=== PATIENT | male | born 1955 | race Caucasian/White ===

== ENCOUNTER 2017-09-20 10:22 | Emergency (ER) | payer OTHER ==
[2017-09-20 11:56] VITALS: BP 123/71
--- NOTE | 2017-09-22 10:10 | ER ---
DATE SEEN: 09/20/2017 TIME SEEN: The patient was seen at 1045 hours. HISTORY OF PRESENT ILLNESS: This is a 62-year-old gentleman presents with his , with history of being tired and coughing for the last 3 days (onset of symptoms on 09/17/2017). He has been mildly short of breath for the last 3 days. He denies dyspnea on exertion. He has a nonproductive cough. He has been afebrile. He has had two-vessel CABG several years ago. He had a stress test done in June, which was negative. 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 He denies palpitations. He is mildly dizzy on occasion. He feels like he is going to have diarrhea, but did not. Feels like he has a slight stomach upset, did not. He has had flu vaccination. He had slight nausea last night. He did have pizza last night, and suggests perhaps that made him worse. He has been without a fever. He has lost 17 pounds in the last 1- 1/2 months. Now, he is currently 256 pounds. He was a smoker, quit 12 years ago. He smoked 1 to 2 packs for 35 years, and has been getting every 6 months' chest x-rays. MEDICATIONS: The patient is taking an FRANK inhibitor. He has been on it for some time for his hypertension. Other medications are 1. Zantac 75 mg daily. 2. Meloxicam 15 mg daily. 3. Lisinopril 7.5 mg daily, latter was increased several months ago. 4. Crestor 20 mg daily. 5. Metoprolol succinate 50 mg daily. 6. Flonase one spray each nostril daily. 7. Lotrisone 15 g p.r.n. 8. Aspirin 81 mg daily. ALLERGIES: None. FAMILY HISTORY: Father of myocardial infarction at age 54. Mother at age 85 of acute leukemia. Brothers alive and well. Two sisters are alive and well. VACCINATION HISTORY: He did have influenza shot. REVIEW OF SYSTEMS: Negative except for noted above. HEENT: Denies headache or neck stiffness. CARDIORESPIRATORY: See cardiorespiratory above. Denies chest pain, palpitation. Paradis dizzy with coughing. He has been actively going up and down the stairs with feet planted without shortness of breath. This morning, he had a temperature of a 100.6 (correction I did say febrile above, but he does have a fever of 100.6). GASTROINTESTINAL: He denies reflux, gastritis. Has peptic disease, constipation, blood in the stool, or black tarry stools. He has not had diarrhea, but he "feels like he has diarrhea." : Negative. MUSCULOSKELETAL: Negative. PHYSICAL EXAMINATION: VITAL SIGNS: Blood pressure 149/79, which we repeated at 123/71; heart rate 98, repeat at 82; respirations 18 and repeat is 20; and temperature is 36.8 degrees centigrade. 116 kg with a BMI of 33.8 kg/m2. GENERAL: This is a pleasant, hard-working man who is here with his . She is very concerned why he is tired. "He is never this tired." HEENT: The patient is not on thyroid medicine. Alert man. No thyromegaly. No tracheal tug. No masses in the neck. No cervical adenopathy. Pharynx, mild uvular edema. Rapid strep was obtained. LUNGS: Clear without rales, rhonchi, or wheezes. HEART: S1 and S2. No irregular rate and rhythm. ABDOMEN: Soft. No guarding. No hepatosplenomegaly. Bowel sounds are normal. No spinous process tenderness. He does have low back surgery in his lumbar region, which is now nontender. Noted that he had difficulty with residual numbness in his foot after he had the surgery. EXTREMITIES: Deep tendon reflexes, absent left knee jerks and ankle jerks. Decreased but present in the right knee and right ankle. Upper extremities, decreased left side and right side deep tendon reflexes, but more notable reflexes on the right compared to the left. DIAGNOSTIC DATA: Chest x-ray: Granulomata was noted. No clear evidence for lymphadenopathy or cephalization. No cardiomegaly. EKG is normal. Troponin is less than 0.017 and D-dimer is negative. LABORATORY FINDINGS: Complete metabolic panel is otherwise normal with mild liver enzyme abnormality; AST 28 (5-25), ALT 43 (12-36), and mild trace elevation in glucose of 138. ASSESSMENT AND PLAN: 1. Cough. 2. Cough secondary to virus. 3. Possible atypical Mycoplasma pneumoniae, but he is not in the usual age range for this. I did not do urine antigen evaluation. 4. Mild liver enzyme elevation, perhaps this has something to do with his weight loss and also is obesity. He should have a followup in 3 to 6 months. 5. Normal white count, normal hemoglobin, and no abnormality of the platelets. 6. No evidence for venous thromboembolism. Legs are negative and D-dimer is negative, not suggesting any lung involvement. 7. No suggestion of myocardial involvement. DIAGNOSES 1. Cough, etiology undetermined, most likely viral. 2. I did not treat for Mycoplasma pneumonia. 3. Doubt cardiovascular etiology. He has had a CABG with 2-vessel approximately 8+ years ago. 4. Obesity with loss of 79 pounds in the last month and a half. He is doing well. Weight is 256 with a BMI of 33.8 kg/m2. Initially, the patient's pressure was elevated on arrival, but has come down to 123/71, and is normotensive. The patient was dismissed with Tessalon Perles 100 mg 1 to 2 tablets three times a day, and also if this does not suppress the cough, he has a backup medication Codeine 30 mg 1 to 2 tablets q.4 to 6 hours p.r.n. severe cough. The patient was advised not to use this if he is planning to work in the next 6 hours, and to avoid it if he is doing other tasks that could involve machinery or driving. Follow up with doctor in a week if not improved or earlier, otherwise as needed. /[id number] NICOLLE/JUANI WINSTON
--- NOTE | 2017-09-22 10:10 | ER ---
DATE SEEN: 09/20/2017 ADDENDUM: Throughout much of this visit, his asked a lot of very appropriate questions, and seemed to have an edge regarding her questions. Perhaps, this is a function of her being concerned, and also her worried about his cardiac status and also concern about her in general. She seemed to bark out questions. I am not sure what her expectation was, and I did not inquire in that regard. As they were leaving, the patient, Mr. York, thanked me for examination. I think all is well, but I am not certain if she had some strong concerns that she did not relate to me; I did not inquire in that regard. /[id number] NICOLLE/JUANI
--- NOTE | 2017-09-22 12:33 | CR ---
INDICATION: Chest tightness and cough. CHEST: PA and lateral views of the chest 09/20/2017 were compared with 2010 and 02/24/2010, revealing the heart to remain normal in size and shape post median sternotomy. Calcification is suggested minimally in the arch of the aorta, which is only minimally tortuous. Bone structures appear to be intact. Findings compatible with COPD are again noted. Overlying buttons are noted. No evidence of an active infiltrate or effusion was seen. IMPRESSION: 1. Stable chest, no acute process. 2. Post medial sternotomy with ASHD and normal appearing heart size. 3. COPD. MTDD
--- NOTE | 2017-09-23 03:57 | ER ---
DATE SEEN: 09/20/2017 EKG performed on 09/20/2017, normal sinus rhythm, heart rate 88. /[id number] NICOLLE/JUANI
== END 2017-09-20 12:19 | disposition home or self-care (01) ==
LOC: FB.ED 10:22
DX: R05 Cough (principal); R94.5 Abnormal results of liver function studies; E66.9 Obesity, unspecified; Z79.899 Other long term (current) drug therapy
CPT/HCPCS: 36415; 71046; 80053; 84443; 84484; 85025; 85379; 87081; 87880-QW; 93005; 99284

== ENCOUNTER 2018-06-10 09:36 | Emergency (ER) | payer OTHER ==
[2018-06-10] MEDS ORDERED: cloNIDine 0.1 MG Tab PO ONE (10:11)
--- NOTE | 2018-06-10 10:16 | EDM.PDOC ---
ED HPI GENERAL MEDICAL PROBLEM - General Chief Complaint: Cardiovascular Problem Stated Complaint: BLOOD PRESSURE Time Seen by Provider: 06/10/18 09:36 Source of Information: Reports: Patient History Limitations: Reports: No Limitations - History of Present Illness INITIAL COMMENTS - FREE TEXT/NARRATIVE: 63 y.o.w.m with H/O HTN, came to the ed because his BP was 186/95 this morning. Pt noticed a nosebleed after taking a shower and checked his BP then, which was elevated. 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 BP 187/100 Pulse 58 RR 18 Pulse ox 100% on RA Temp 35.8 Onset Date: 06/10/18 Onset Time: 06:00 Duration: Hour(s):, Improving Location: Reports: Face Quality: Reports: Other (ant nose bleed) Severity: Mild Improves with: Reports: Rest Worsens with: Reports: Other (htn) Context: Reports: Other (htn) Associated Symptoms: Reports: Other (nose bleed) - Related Data Allergies Allergy/AdvReac Type Severity Reaction Status Date / Time No Known Allergies Allergy Verified 06/10/18 09:39 Home Meds: Home Meds Aspirin 81 mg PO DAILY 06/25/15 [History] Metoprolol Succinate 50 mg PO DAILY 06/25/15 [History] Rosuvastatin [Crestor] 20 mg PO DAILY 06/25/15 [History] Betamethasone/Clotrimazole [Lotrisone] 15 gm TOP BID PRN 06/27/15 [History] Fluticasone Propionate [Flonase] 1 spray NS DAILY PRN 08/08/15 [History] Nystatin/Triamcinolone Crm [Mycolog Crm] 1 applic TOP BID PRN 08/08/15 [History] Lisinopril 7.5 mg DAILY 09/20/17 [History] Ranitidine [Zantac] 75 mg PO DAILY PRN 09/20/17 [History] Past Medical History HEENT History: Reports: None Cardiovascular History: Reports: Bypass, CAD, High Cholesterol, Hypertension, Stents Other Cardiovascular History: 8 vessel CABG Respiratory History: Reports: None Gastrointestinal History: Reports: GERD Genitourinary History: Reports: None Musculoskeletal History: Reports: Back Pain, Chronic Other Musculoskeletal History: has had back surgery in 2012 to remove a potion of a ruptured disc in his back Neurological History: Reports: Neuropathy, Peripheral Endocrine/Metabolic History: Reports: Diabetes, Type II, Obesity/BMI 30+ Other Endocrine/Metabolic History: borderline DM - Infectious Disease History Infectious Disease History: Reports: Chicken Pox, Measles, Mumps - Past Surgical History Head Surgeries/Procedures: Reports: None Cardiovascular Surgical History: Reports: Coronary Artery Bypass, Coronary Artery Stent GI Surgical History: Reports: Colonoscopy, EGD Male Surgical History: Reports: None Neurological Surgical History: Reports: Lumbar Spine Social & Family History - Family History Family Medical History: Noncontributory - Tobacco Use Smoking Status *Q: Former Smoker Used Tobacco, but Quit: Yes Month/Year Tobacco Last Used: 2005 - Caffeine Use Caffeine Use: Reports: Coffee - Recreational Drug Use Recreational Drug Use: No ED ROS GENERAL - Review of Systems Review Of Systems: See Below Constitutional: Reports: No Symptoms HEENT: Reports: Nosebleed (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) Respiratory: Reports: No Symptoms Cardiovascular: Reports: No Symptoms Endocrine: Reports: No Symptoms GI/Abdominal: Reports: No Symptoms : Reports: No Symptoms Musculoskeletal: Reports: No Symptoms Skin: Reports: No Symptoms Neurological: Reports: No Symptoms Psychiatric: Reports: No Symptoms Hematologic/Lymphatic: Reports: No Symptoms Immunologic: Reports: No Symptoms ED EXAM, GENERAL - Physical Exam Exam: See Below Exam Limited By: No Limitations General Appearance: Alert, WD/WN, Mild Distress Eye Exam: Bilateral Eye: Normal Inspection Ears: Normal External Exam Ear Exam: Bilateral Ear: Auricle Normal Nose: Normal Inspection, Normal Mucosa, No Blood Throat/Mouth: Normal Inspection, Normal Lips, Normal Voice, No Airway Compromise Head: Atraumatic, Normocephalic Neck: Normal Inspection, Supple, Non-Tender, Full Range of Motion Respiratory/Chest: No Respiratory Distress, Lungs Clear, Normal Breath Sounds, Chest Non-Tender Cardiovascular: Normal Peripheral Pulses, Regular Rate, Rhythm, No Edema, No Gallop, No JVD, No Murmur, No Rub Peripheral Pulses: 1+: Brachial (R) GI/Abdominal: Normal Bowel Sounds (Male) Exam: Deferred Rectal (Males) Exam: Deferred Back Exam: Normal Inspection Extremities: Normal Inspection Neurological: Alert, Oriented, CN II-XII Intact, Normal Cognition Psychiatric: Normal Affect, Normal Mood Skin Exam: Warm, Dry, Intact, Normal Color, No Rash Lymphatic: No Adenopathy Course - Vital Signs Text/Narrative:: 63 y.o.w.m with H/O HTN, came to the ed because his BP was 186/95 this morning. Pt noticed a nosebleed after taking a shower and checked his BP then, which was elevated. 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 BP 187/100 Pulse 58 RR 18 Pulse ox 100% on RA Temp 35.8 PE: WNWD W M with HTN Labs/Imaging: Not indicated Impression: HTN Tx: Clonidine Reexam: Improved BP was 156/95 Plan: D/C with instructions Last Recorded V/S: Last Vital Signs Temp 35.7 C 06/10/18 09:36 Pulse 49 L 06/10/18 11:36 Resp 18 06/10/18 11:36 BP 140/73 06/10/18 11:36 Pulse Ox 100 06/10/18 11:36 - Orders/Labs/Meds Meds: Medications Discontinued Medications Generic Name Dose Route Start Last Admin Trade Name Barbi PRN Reason Stop Dose Admin Clonidine HCl 0.1 mg 06/10/18 10:11 06/10/18 10:29 Catapres PO 06/10/18 10:12 0.1 mg ONETIME ONE Administration Departure - Departure Time of Disposition: 11:08 Disposition: Home, Self-Care 01 Condition: Good Clinical Impression: Hypertension Instructions: Hypertension, [id number], Clonidine tablets Referrals: Federico Disla MD [Primary Care Provider] - Forms: ED Department Discharge Additional Instructions: Please cont your current medications, check you BP every morning at the same time at rest, please follow up with your regular MD at clinic, come back if your symptoms get worse acutely.
[2018-06-10 11:50] VITALS: BP 140/73
== END 2018-06-10 11:40 | disposition home or self-care (01) ==
LOC: FB.ED 09:36
DX: I10 Essential (primary) hypertension (principal); I25.10 Atherosclerotic heart disease of native coronary artery without angina pectoris; E11.9 Type 2 diabetes mellitus without complications; E66.9 Obesity, unspecified; Z95.1 Presence of aortocoronary bypass graft; Z95.5 Presence of coronary angioplasty implant and graft; Z79.82 Long term (current) use of aspirin; Z79.899 Other long term (current) drug therapy; Z87.891 Personal history of nicotine dependence
CPT/HCPCS: 99283; A9270

== ENCOUNTER 2019-05-25 07:32 | Day surgery (SDC) | payer MEDICARE, OTHER ==
[~2019-05-25 07:32] MED LIST: Lactated Ringers 1,000 ML IV SCH; Sodium Chloride 0.9% 10 ML Syringe FLUSH PRN
[2019-05-25] MEDS ORDERED: Lidocaine 2% 5 ML SDV INJECT ONE (07:33)
[2019-05-25] MEDS ORDERED: Propofol 200 MG/20 ML SDV IV ONE (07:33)
--- NOTE | 2019-05-25 08:49 | PCM.OPNOTE ---
- General Post-Op/Procedure Note Date of Surgery/Procedure: 05/25/19 Operative Procedure(s): egd with bx Findings: gastroduodenitis esophagitis Pre Op Diagnosis: dysphagia Post-Op Diagnosis: gastroduodenitis. esophagitis Anesthesia Technique: CURRY Primary Surgeon: Bennie Thorne Anesthesia Provider: Mitchell William Pathology: stomach duodenum and esophagus Complications: None Condition: Good Free Text/Narrative:: see dictation
[2019-05-25 09:43] VITALS: BP 111/57; PULSE 58
--- NOTE | 2019-05-25 14:35 | OR ---
DATE OF OPERATION: 05/25/2019 SURGEON: Bennie Thorne MD PROCEDURE PERFORMED: Esophagogastroduodenoscopy with cold forceps biopsy. PREOPERATIVE DIAGNOSIS: Dysphagia. POSTOPERATIVE DIAGNOSES: Gastroduodenitis and some esophagitis. INDICATIONS FOR PROCEDURE: This is a 64-year-old white male who has a history of some epigastric discomfort as well as some swallowing issues. He has gotten progressively worse, and he was offered and accepted upper endoscopy. DESCRIPTION OF OPERATION: After an excellent IV sedation was administered, the bite block was inserted. The flexible endoscope was passed without difficulty down the patient's esophagus into the stomach. The stomach was insufflated, scope passed through the pylorus to the second portion of the duodenum and slowly withdrawn. The following findings were noted. In the first portion of the duodenum, duodenitis noted. Biopsies and photos were taken. Stomach, GE junction measured at 40 cm. There was some irritation noted in the area of the antrum. Biopsies and photo were taken. In evaluating the esophagus on one side, there was some GE junction with some areas of inflammation. This was biopsied with cold biopsy forceps and sent for permanent. The remainder of the esophageal exam was unremarkable. The patient tolerated the procedure well and was taken to Recovery. Results will be sent to the patient by letter. /[id number] /MODL
== END 2019-05-25 09:32 | disposition home or self-care (01) ==
LOC: FB.SDS 07:32
PROVIDERS: ATTEND Surgery
DX: K29.50 Unspecified chronic gastritis without bleeding (principal); K31.89 Other diseases of stomach and duodenum; K29.90 Gastroduodenitis, unspecified, without bleeding; K21.0 Gastro-esophageal reflux disease with esophagitis; I11.9 Hypertensive heart disease without heart failure; E11.9 Type 2 diabetes mellitus without complications; E78.49 Other hyperlipidemia; I25.10 Atherosclerotic heart disease of native coronary artery without angina pectoris; E66.9 Obesity, unspecified; Z68.33 Body mass index [BMI] 33.0-33.9, adult; Z87.891 Personal history of nicotine dependence; Z79.82 Long term (current) use of aspirin; Z79.84 Long term (current) use of oral hypoglycemic drugs; Z79.899 Other long term (current) drug therapy; Z95.1 Presence of aortocoronary bypass graft
CPT/HCPCS: 00731; 43239; 82962; J2001; J2704; J7120; 88305; 88312; 88342